=== PATIENT | male | born 1995 | race Caucasian/White ===

== ENCOUNTER 2025-08-01 10:42 | Emergency (ER) | payer OTHER ==
[~2025-08-01] VITALS: Ht 170.2 cm; Wt 63.5 kg
[2025-08-01 13:01] VITALS: BP 132/81
== END 2025-08-01 13:01 | disposition home or self-care (01) ==
LOC: ED 10:42
DX: S43.401A Unspecified sprain of right shoulder joint, initial encounter (principal); V80.018A Animal-rider injured by fall from or being thrown from other animal in noncollision accident, initial encounter; Y93.I9 Activity, other involving external motion; Y92.39 Other specified sports and athletic area as the place of occurrence of the external cause; Z88.0 Allergy status to penicillin
CPT/HCPCS: 73030; 99283